=== PATIENT | male | born 1975 | race African-American/Black ===

== ENCOUNTER 2017-08-19 13:20 | Emergency (ER) | payer OTHER ==
[~2017-08-19] VITALS: Ht 182.9 cm; Wt 158.8 kg
[~2017-08-19 13:20] MED LIST: AMARYL4 MG PO; ASPIRIN325 PO; CYCLOBENZAPRINE10 MG PO; FLEXERIL PO; GLUCOPHAGE XR750 MG PO; IBUPROFEN 800800 M1 PO; IBUPROFEN 800800 MG PO; JANUVIA100 MG PO; LIPITOR 20 MG T20 M1 PO; LISINOPRIL5 MG PO; MAXZIDE-25 MG1 EACH PO; MELOXICAM7.5 MG PO; NOHOMEMEDICATIONS; NORCO 5-325 TA1 EACH PO; NORFLEX100 MG PO; PREDNISONE 5 MG5 M1 PO; TOPROL XL25 MG PO; VERAPAMIL E.R240 M1 PO
[2017-08-19] MEDS ORDERED: MOBIC15 MG PO (14:51)
== END 2017-08-19 15:15 | disposition home or self-care (01) ==
LOC: ER 13:20
DX: R07.89 Other chest pain (principal); I10 Essential (primary) hypertension; E11.9 Type 2 diabetes mellitus without complications; M54.9 Dorsalgia, unspecified; G89.29 Other chronic pain